=== PATIENT | male | born 1975 | race Caucasian/White ===

== ENCOUNTER 2017-02-01 12:55 | Emergency (ER) | payer BC ==
[2017-02-01] MEDS ORDERED: Sodium Chloride 0.9% 5 ML Syringe FLUSH PRN (13:17)
[2017-02-01] MEDS ORDERED: Sodium Chloride 0.9% 1,000 ML IV ONE (13:17)
[2017-02-01] MEDS ORDERED: Dexamethasone 4 MG/ML SDV IVPUSH ONE (13:17)
--- NOTE | 2017-02-01 13:23 | EDM.PDOC ---
ED HPI GENERAL MEDICAL PROBLEM - General Chief Complaint: General Stated Complaint: NUMBNESS IN HIS FACE Time Seen by Provider: 02/01/17 13:05 Source of Information: Reports: Patient History Limitations: Reports: No Limitations - History of Present Illness INITIAL COMMENTS - FREE TEXT/NARRATIVE: AFTER WORKING ALL DAY IN [employer] YESTERDAY, AT 2200 LAST NIGHT PT NOTICED TINGLING AND NUMBNESS AROUND MOUTH AND ON LEFT SIDE OF FACE. THOUGHT HE WAS GETTING A COLD SORE. SYMPTOMS SUBSIDED AND HE WENT TO BED. SYMPTOMS STARTING AGAIN TODAY SO PRESENTED TO ER. SYMPTOMS RESOLVED PRIOR TO PRESENTATION. DENIES CP, SOB, PRINCE, VISION CHANGES, FEVER, TRAUMA, N/V/D, OR SIMILAR SYMPTOMS IN PAST Duration: Day(s): Location: Reports: Face Quality: Reports: Other (NUMBNESS AND TINGLING) Improves with: Reports: None Worsens with: Reports: None Associated Symptoms: Reports: No Other Symptoms. Denies: Chest Pain, Diaphoresis, Fever/Chills, Headaches, Nausea/Vomiting, Rash, Seizure, Shortness of Breath, Syncope, Weakness Neck Pain Score (Numeric/FACES): 2 Left Ribs Pain Score (Numeric/FACES): 2 - Related Data Allergies Allergy/AdvReac Type Severity Reaction Status Date / Time No Known Allergies Allergy Verified 07/28/14 15:06 ED ROS GENERAL - Review of Systems Review Of Systems: ROS reveals no pertinent complaints other than HPI. Constitutional: Reports: No Symptoms HEENT: Reports: No Symptoms Respiratory: Reports: No Symptoms Cardiovascular: Reports: No Symptoms Endocrine: Reports: No Symptoms GI/Abdominal: Reports: No Symptoms : Reports: No Symptoms Musculoskeletal: Reports: No Symptoms Skin: Reports: No Symptoms Neurological: Reports: Numbness (LEFT FACE) Psychiatric: Reports: No Symptoms Hematologic/Lymphatic: Reports: No Symptoms Immunologic: Reports: No Symptoms ED EXAM, GENERAL - Physical Exam Exam: See Below Exam Limited By: No Limitations General Appearance: Alert, WD/WN, No Apparent Distress Eye Exam: Bilateral Eye: Normal Inspection Ears: Normal External Exam, Normal Canal, Normal TMs Nose: Normal Inspection, Normal Mucosa, No Blood Throat/Mouth: Normal Inspection, Normal Oropharynx, No Airway Compromise Head: Atraumatic, Normocephalic Neck: Normal Inspection, Supple, Non-Tender, Full Range of Motion. No: Carotid Bruit, Lymphadenopathy (L), Lymphadenopathy (R) Respiratory/Chest: No Respiratory Distress, Lungs Clear, Normal Breath Sounds, No Accessory Muscle Use, Chest Non-Tender Cardiovascular: Regular Rate, Rhythm, No Murmur GI/Abdominal: Normal Bowel Sounds, Soft, Non-Tender Back Exam: Normal Inspection. No: CVA Tenderness (L), CVA Tenderness (R) Extremities: Normal Inspection, No Pedal Edema Neurological: Alert, Oriented, CN II-XII Intact, Normal Cognition, No Motor/ Sensory Deficits Psychiatric: Normal Affect, Normal Mood Skin Exam: Warm, Dry, Intact, Normal Color, No Rash Lymphatic: No Adenopathy Course - Vital Signs Last Recorded V/S: Last Vital Signs Temp 98.6 F 02/01/17 13:05 Pulse 83 02/01/17 13:05 Resp 14 02/01/17 13:05 BP 156/96 H 02/01/17 13:05 Pulse Ox 98 02/01/17 13:05 - Orders/Labs/Meds Orders: Active Orders 24 hr Category Date Time Status Peripheral IV Care [RC] . DIRECTED Care 02/01/17 13:17 Ordered CBC WITH AUTO DIFF [HEME] Stat Lab 02/01/17 13:16 Ordered COMPREHENSIVE METABOLIC PN,CMP [CHEM] Stat Lab 02/01/17 13:16 Ordered Dexamethasone Med 02/01/17 13:17 Once 8 mg IVPUSH ONETIME ONE Sodium Chloride 0.9% @ 999 MLS/HR (1000ml) Med 02/01/17 13:17 Ordered Sodium Chloride 0.9% [Normal Saline] 1,000 ml IV .BOLUS Sodium Chloride 0.9% [Syrex Flush] Med 02/01/17 13:17 Ordered 5 ml FLUSH Q8HR PRN Peripheral IV Insertion Adult [OM.PC] Routine Oth 02/01/17 13:17 Ordered - Re-Assessments/Exams Free Text/Narrative Re-Assessment/Exam: 02/01/17 14:00 PT AFEBRILE, NONTOXIC APPEARING, VSS, NO FACIAL NUMBNESS OR TINGLING WHILE IN ER. WILL F/U WITH DR LEONARD Departure - Departure Time of Disposition: 14:01 Disposition: Home, Self-Care 01 Condition: Good Clinical Impression: Facial neuralgia, Hyperglycemia - Discharge Information Instructions: Hyperglycemia, [id number], Neuropathic Pain Referrals: PCP,None [Primary Care Provider] - Alfredo-Ally Arguelles MD [Physician] - Additional Instructions: FOLLOW UP WITH DR LEONARD. CALL TO MAKE APPOINTMENT. RETURN TO ER SOONER IF SYMPTOMS CONTINUE - My Orders Last 24 Hours: My Active Orders 02/01/17 13:16 CBC WITH AUTO DIFF [HEME] Stat COMPREHENSIVE METABOLIC PN,CMP [CHEM] Stat 02/01/17 13:17 Peripheral IV Care [RC] . DIRECTED Dexamethasone 8 mg IVPUSH ONETIME ONE Sodium Chloride 0.9% @ 999 MLS/HR (1000ml) Sodium Chloride 0.9% [Normal Saline] 1,000 ml IV .BOLUS Sodium Chloride 0.9% [Syrex Flush] 5 ml FLUSH Q8HR PRN Peripheral IV Insertion Adult [OM.PC] Routine - Assessment/Plan Last 24 Hours: My Active Orders 02/01/17 13:16 CBC WITH AUTO DIFF [HEME] Stat COMPREHENSIVE METABOLIC PN,CMP [CHEM] Stat 02/01/17 13:17 Peripheral IV Care [RC] . DIRECTED Dexamethasone 8 mg IVPUSH ONETIME ONE Sodium Chloride 0.9% @ 999 MLS/HR (1000ml) Sodium Chloride 0.9% [Normal Saline] 1,000 ml IV .BOLUS Sodium Chloride 0.9% [Syrex Flush] 5 ml FLUSH Q8HR PRN Peripheral IV Insertion Adult [OM.PC] Routine Assessment:: facial tingling / hyperglycemia Plan: F/U WITH PCP
[2017-02-01 13:50] LABS: CHLORIDE,CL 103 mmol/L (98-115); SODIUM,NA 140 mmol/L (136-145)
[2017-02-01 14:15] VITALS: BP 159/83
== END 2017-02-01 14:40 | disposition home or self-care (01) ==
LOC: KA.ED 12:55
DX: G50.0 Trigeminal neuralgia (principal); R73.9 Hyperglycemia, unspecified
CPT/HCPCS: 36415; 80053; 83036; 85025; 96361; 96374; 99284; J1100; J7030

== ENCOUNTER 2017-02-06 02:35 | Emergency (ER) | payer BC ==
[2017-02-06] MEDS ORDERED: Aspirin 81 MG Tab.Chew PO ONE (02:59)
[2017-02-06] MEDS: Nitroglycerin 0.4 MG Tab.SL SL PRN ×3 (03:04→03:26)
--- NOTE | 2017-02-06 03:08 | EDM.PDOC ---
ED HPI GENERAL MEDICAL PROBLEM - General Chief Complaint: Chest Pain Stated Complaint: chest pain Time Seen by Provider: 02/06/17 02:47 Source of Information: Reports: Patient History Limitations: Reports: No Limitations - History of Present Illness INITIAL COMMENTS - FREE TEXT/NARRATIVE: Patient presents with pain in left anterolateral chest that started at 0100 at a 5/10 with occasional sharp twinges to 7/10. This awakened him from sleep and felt heavy in nature with sharp exacerbations not associated with breathing. It has been constant but gradually decreasing in severity and is now 1-2/10. No substernal, arm, shoulder, neck, jaw or back pain. No diaphoresis. No history of heart or lung problems. No prescription meds. He had some numbness in left arm and shoulder 5 days ago and saw his PCP, Dr. Canales, 4 days ago and was prescribed cholesterol medication which he hasn't started yet. Left Chest Pain Score (Numeric/FACES): 2 - Related Data Allergies Allergy/AdvReac Type Severity Reaction Status Date / Time No Known Allergies Allergy Verified 02/06/17 03:00 Home Meds: Home Meds Ascorbic Acid [Vitamin C] 500 mg PO DAILY 02/01/17 [History] Multivitamin [One Daily Multivitamin] 1 each PO DAILY 02/01/17 [History] Past Medical History - Infectious Disease History Infectious Disease History: Reports: Chicken Pox Social & Family History - Tobacco Use Smoking Status *Q: Never Smoker Second Hand Smoke Exposure: No - Caffeine Use Caffeine Use: Reports: Coffee, Soda, Tea - Recreational Drug Use Recreational Drug Use: No ED ROS GENERAL - Review of Systems Review Of Systems: See Below Constitutional: Denies: Fever, Chills, Malaise, Weakness, Diaphoresis HEENT: Denies: Vision Change Respiratory: Denies: Shortness of Breath, Cough Cardiovascular: Reports: Chest Pain. Denies: Lightheadedness, Syncope GI/Abdominal: Denies: Abdominal Pain, Nausea, Vomiting : Reports: No Symptoms Musculoskeletal: Denies: Neck Pain, Shoulder Pain, Arm Pain, Back Pain Skin: Denies: Cyanosis, Jaundice, Mottled, Pallor, Diaphoresis Neurological: Denies: Confusion, Dizziness, Headache, Seizure, Syncope Psychiatric: Denies: Agitation, Anxiety, Confusion ED EXAM, GENERAL - Physical Exam Exam: See Below Exam Limited By: No Limitations General Appearance: Alert, WD/WN, No Apparent Distress Eye Exam: Bilateral Eye: EOMI, Normal Inspection, PERRL Ears: Normal External Exam, Hearing Grossly Normal Nose: Normal Inspection, No Blood Throat/Mouth: Normal Inspection, Normal Lips, Normal Voice, No Airway Compromise Head: Atraumatic, Normocephalic Neck: Normal Inspection, Supple, Full Range of Motion Respiratory/Chest: No Respiratory Distress, Lungs Clear, Normal Breath Sounds, No Accessory Muscle Use, Chest Non-Tender (pain is identified by patient to be isolated 2-3 cm below left nipple; not reproducible with palpation and no palpable abnormality) Cardiovascular: Normal Peripheral Pulses, Regular Rate, Rhythm, No Edema, No Murmur Peripheral Pulses: 2+: Carotid (L), Carotid (R), Radial (L), Radial (R), Posterior Tibial (L), Posterior Tibial (R) GI/Abdominal: Normal Bowel Sounds, Soft, Non-Tender, No Organomegaly, No Distention Back Exam: Normal Inspection, Full Range of Motion. No: CVA Tenderness (L), CVA Tenderness (R) Extremities: Normal Inspection, Normal Range of Motion, Non-Tender Neurological: Alert, Oriented, Normal Cognition, No Motor/Sensory Deficits Psychiatric: Normal Affect, Normal Mood Skin Exam: Warm, Dry, Intact, Normal Color, No Rash Course - Vital Signs Last Recorded V/S: Last Vital Signs Temp 97.6 F 02/06/17 02:56 Pulse 55 L 02/06/17 06:50 Resp 16 02/06/17 06:50 BP 111/67 02/06/17 06:50 Pulse Ox 98 02/06/17 06:50 - Orders/Labs/Meds Orders: Active Orders 24 hr Category Date Time Status EKG Documentation Completion [RC] ASDIRECTED Care 02/06/17 03:01 Active Heart Healthy Diet [DIET] Diet 02/06/17 Breakfast Active Chest 2V [CR] Stat Exams 02/06/17 02:59 Taken TROPONIN I [CHEM] Routine Lab 02/06/17 08:55 Received Morphine Med 02/06/17 04:22 Active 2 mg IVPUSH Q2H PRN EKG 12 Lead [EK] Routine Ther 02/06/17 03:01 Ordered Medication Orders Morphine Sulfate (Morphine) 2 mg IVPUSH Q2H PRN PRN Reason: Chest Pain Labs: Laboratory Tests 02/06/17 02/06/17 02/06/17 Range/Units 02:45 02:45 02:45 WBC 6.1 (5.0-10.0) 10^3/uL RBC 4.88 (4.50-6.00) 10^6/uL Hgb 14.0 (13.0-17.0) g/dL Hct 42.2 (40.0-52.0) % MCV 86.5 (82.0-92.0) fL MCH 28.1 (27.0-31.0) pg MCHC 32.5 (32.0-36.0) g/dL RDW 11.9 (11.5-14.5) % Plt Count 244 (150-300) 10^3/uL MPV 7.4 (7.4-10.4) fL Neut % (Auto) 39.4 L (50.0-70.0) % Lymph % (Auto) 48.0 H (20.0-40.0) % [place] % (Auto) 9.0 H (2.0-8.0) % Eos % (Auto) 2.7 (1.0-3.0) % Baso % (Auto) 0.9 (0.0-1.0) % Neut # (Auto) 2.4 L (2.5-7.0) 10^3/uL Lymph # (Auto) 2.9 (1.0-4.0) 10^3/uL [place] # (Auto) 0.5 (0.1-0.8) 10^3/uL Eos # (Auto) 0.2 (0.1-0.3) 10^3/uL Baso # (Auto) 0.1 (0.0-0.1) 10^3/uL D-Dimer, Quantitative 167 (<400) ng/mL Sodium 141 (136-145) mmol/L Potassium 3.6 (3.3-5.3) mmol/L Chloride 104 (98-115) mmol/L Carbon Dioxide 30.0 (21.0-32.0) mmol/L BUN 11 (6-25) mg/dL Creatinine 1.02 (0.51-1.17) mg/dL Est Cr Clr Drug Dosing TNP Estimated GFR (MDRD) > 60 mL/min Glucose 101 (70-110) mg/dL Calcium 9.1 (8.7-10.3) mg/dL Troponin I < 0.04 (0.00-0.070) ng/mL Meds: Medications Generic Name Dose Route Start Last Admin Trade Name Freq PRN Reason Stop Dose Admin Morphine Sulfate 2 mg 02/06/17 04:22 Morphine IVPUSH Q2H PRN Chest Pain Discontinued Medications Generic Name Dose Route Start Last Admin Trade Name Freq PRN Reason Stop Dose Admin Aspirin 324 mg 02/06/17 02:59 02/06/17 03:04 Aspirin PO 02/06/17 03:00 324 mg ONETIME ONE Administration Morphine Sulfate 4 mg 02/06/17 04:01 02/06/17 04:10 Morphine IVPUSH 02/06/17 04:02 4 mg ONETIME ONE Administration Nitroglycerin 0.4 mg 02/06/17 02:59 02/06/17 03:26 Nitrostat SL 0.4 mg Q5M PRN Administration Chest Pain Ondansetron HCl 4 mg 02/06/17 03:30 02/06/17 03:34 Zofran IVPUSH 02/06/17 03:31 4 mg ONETIME ONE Administration Ondansetron HCl Confirm 02/06/17 03:32 02/06/17 04:08 Zofran Administered 02/06/17 03:33 Not Given Dose 4 mg .ROUTE .STK-MED ONE - Re-Assessments/Exams Free Text/Narrative Re-Assessment/Exam: 02/06/17 04:06 Nitrostat x 3 doesn't fully relieve pain but following the 3rd dose he became pale and nauseous with a drop in BP to 72/25. This quickly returned to 97/50 and his facial color improved again within 2 minutes. Pressure is now 119/66. Discussed EKG showing T-wave inversions in V1-2 as well as RSR or incomplete RBBB, with Jacob BOWLING, Dr. Lynch. He recommended checking D-dimer and serial troponins with follow up for stress test. We are also trying to access an old EKG from [facility] through medical records in [place] for comparison. 02/06/17 04:24 Old EKG from 05-03-12 shows a nonspecific intraventricular conduction delay, without T-wave inversions in V2. D-dimer is normal. Chest pain is completely gone after 4 mg morphine. Will monitor and recheck troponin at 0900. 02/06/17 10:50 Second troponin is normal. We discussed that this appears to be more of a chest wall pain than cardiac but needs further workup to be confident with that diagnosis. Patient is comfortable and feels ready to go home. Discussed findings and formulated a treatment plan with Dr. Canales (his PCP) which included scheduling a stress test prior to his discharge, which will be done in the near future. Patient discharged in stable condition. Departure - Departure Time of Disposition: 10:47 Disposition: Home, Self-Care 01 Condition: Good Clinical Impression: Chest pain in adult Instructions: Nonspecific Chest Pain, [id number] Referrals: Ally Duffy MD [Primary Care Provider] - Forms: ED Department Discharge Additional Instructions: 1. Drink 8 cups of water daily. 2. Take a regular strength aspirin daily. 3. Return for the scheduled stress test which will further rule out blockage of the heart. 4. Take Ibuprofen 400-600 mg up to 3 times a day as needed for chest wall pain. 5. Follow up with your PCP in 3-4 days for recheck. 6. Return to ER as needed. - My Orders Last 24 Hours: My Active Orders 02/06/17 02:59 Chest 2V [CR] Stat 02/06/17 03:01 EKG Documentation Completion [RC] ASDIRECTED EKG 12 Lead [EK] Routine 02/06/17 04:22 Morphine 2 mg IVPUSH Q2H PRN 02/06/17 08:55 TROPONIN I [CHEM] Routine 02/06/17 Breakfast Heart Healthy Diet [DIET] - Assessment/Plan Last 24 Hours: My Active Orders 02/06/17 02:59 Chest 2V [CR] Stat 02/06/17 03:01 EKG Documentation Completion [RC] ASDIRECTED EKG 12 Lead [EK] Routine 02/06/17 04:22 Morphine 2 mg IVPUSH Q2H PRN 02/06/17 08:55 TROPONIN I [CHEM] Routine 02/06/17 Breakfast Heart Healthy Diet [DIET]
[2017-02-06 03:27] LABS: CHLORIDE,CL 104 mmol/L (98-115); SODIUM,NA 141 mmol/L (136-145)
[2017-02-06] MEDS ORDERED: Ondansetron 4 MG/2 ML SDV IVPUSH ONE (03:30)
[2017-02-06] MEDS ORDERED: Ondansetron 4 MG/2 ML SDV ONE (03:32)
[2017-02-06] MEDS ORDERED: Morphine 4 MG/ML Syringe IVPUSH ONE (04:01)
[2017-02-06] MEDS ORDERED: Morphine 2 MG/ML Syringe IVPUSH PRN (04:22)
[2017-02-06 06:51] VITALS: BP 111/67
== END 2017-02-06 11:10 | disposition home or self-care (01) ==
LOC: KA.ED 02:35
DX: R07.89 Other chest pain (principal); Z79.899 Other long term (current) drug therapy
CPT/HCPCS: 71020; 80048; 84484; 85025; 85379; 96374; 96375; 99285; A9270; J2270; J2405; 93005